=== PATIENT | male | born 1960 | race Caucasian/White ===

== ENCOUNTER 2017-08-05 11:28 | Observation (INO) ==
[2017-08-05] MEDS ORDERED: Ipratropium/Albuterol Neb 3 ML ONE (12:33)
[2017-08-05] MEDS: Ipratropium/Albuterol Neb 3 ML IH SCH (12:34)
--- NOTE | 2017-08-05 12:37 | Emergency Department Note ---
Disposition Clinical Impression: Shortness of breath Asthma with acute exacerbation Qualifiers: Asthma severity: severe Asthma persistence: persistent Qualified Code(s): J45.51 - Severe persistent asthma with (acute) exacerbation Disposition: Admitted As Inpatient Condition: Fair Referrals: Divine Phillips DO [Primary Care Provider] - Forms: ED Satisfaction Letter Time of Disposition: 16:10 (GET THIS ADMISSION TREAT) General Adult HPI - General Chief complaint: ED Asthma Stated complaint: asthma attack Time Seen by Provider: 08/05/17 12:17 Source: patient Limitations: no limitations Nursing Notes Reviewed: Yes Vital Signs Reviewed: Yes - History of Present Illness HPI Narrative: He has a history of COPD and stop smoking 5 months ago and presents today with severe shortness of breath which began when he was driving at 9:30 and is constant and worse with exertion with associated chest heaviness. Does have a pleuritic aspect with no radiation. No diaphoresis. No pain or swelling of the lower extremities. He is out of his inhaler. No cough or fever. Social history: Stopped smoking 5 months ago, no alcohol or drugs Pain Scale: 8 - Related Data Home Medications Medication Instructions Recorded Confirmed Albuterol Sulfate [Albuterol 2 puff IH Q4HR PRN 02/17/16 08/05/17 Inhaler] Ipratropium/Albuterol Neb [Duoneb] 3 ml IH Q6HR PRN 02/17/16 08/05/17 Quetiapine Fumarate [Seroquel] 350 mg PO HS 02/17/16 08/05/17 Tamsulosin [Flomax] 0.4 mg PO DAILY 02/17/16 08/05/17 Allergies Allergy/AdvReac Type Severity Reaction Status Date / Time No Known Allergies Allergy Verified 08/05/17 11:31 Review of Systems: Constitutional: No fever Vision: No blurred vision ENT: No rhinorrhea Respiratory: No cough Allergic: No allergies : No blood in urine GI: No blood in stool Hematologic: No bruising Dermatologic: No skin rash Musculoskeletal: No pain in the extremities Neuro: No numbness of the extremities Past Medical History - Past Medical History Medical history: Reports: asthma, COPD, diabetes, hyperlipidemia Psychiatric history: Reports: anxiety - Social History Smoking Status: Former smoker Smokeless Tobacco Status: No Alcohol use: Reports: none Drug use: Reports: none Physical Exam CONSTITUTIONAL: Well-appearing; well-nourished; A&O X 3, with moderate respiratory distress. The patient is to However the oxygen saturation is 90% on room air Head: atraumatic EYES: PERRL, no scleral icterus NOSE: The nose is normal in appearance without rhinorrhea NECK: No JVD or distended neck veins RESP: Normal chest excursion with respiration; breath sounds clear and equal bilaterally; no wheezes, rhonchi, or rales CARD: Regular rhythm, without murmurs, rub or gallop ABD: Non-distended; non-tender, soft, without rigidity, rebound or guarding,no pulsatile mass CHEST: No pain with palpation SKIN: Normal for age and race; warm and dry without diaphoresis ; no apparent lesions EXTREMITIES: Pulses are 2 plus and equal times 4 extremities, no peripheral edema or calf muscle pain - General Limitations: no limitations General appearance: alert Course Vital Signs Temperature 98 F 08/05/17 11:31 Pulse Rate 108 08/05/17 11:31 Respiratory Rate 24 08/05/17 11:31 Blood Pressure 166/98 08/05/17 11:31 O2 Sat by Pulse Oximetry 98 08/05/17 11:31 Temperature 98 F 08/05/17 11:31 Pulse Rate 108 08/05/17 11:31 Respiratory Rate 24 08/05/17 11:31 Blood Pressure 166/98 08/05/17 11:31 O2 Sat by Pulse Oximetry 100 08/05/17 12:48 Oxygen Delivery Oxygen Delivery Room Air Medical Decision Making - MDM Narrative Medical decision making narrative: patient's symptoms are BNP and troponin are all ordered. The patient does have good excursion with breath sounds however no wheezing so in addition to initial treatment for COPD we will also evaluate for other possible etiologies of his symptoms. 1237 I did review the EKG showing normal sinus rhythm with a rate of 94 and low voltage QRS and the patient does have some T-wave inversion in lead aVL did CTA of the chest is pending. I did review the other test results. Chest XR is negative. BNP and troponin are both negative. D-dimer is elevated so the chest CT is done 1409 I did review the patient's labs, he does have some element of chronic renal failure. I did speak with the hospitalist to except the patient for admission as I am concerned with the patient's significant shortness of breath which is improved but still present and the fact that he initially had no wheezing and only has a very slight wheeze on the left. He will receive 10 mg IV Decadron, oral aspirin and be admitted for monitoring as well as troponin test. CTA was negative and did not show any evidence of pneumonia, pulmonary embolism, pneumothorax, malignancy, heart failure, aortic dissection or other problems 1609 - Medical Records Medical records reviewed: Yes I reviewed the patient's medical records. - Lab Data Lab results reviewed: Yes I reviewed the patient's lab results. Result diagrams: 08/05/17 13:00 08/05/17 13:00 Lab Results 08/05/17 08/05/17 08/05/17 Range/Units 13:00 13:00 13:00 WBC 9.4 (4.3-11.1) K/mcL RBC 4.88 (4.19-5.50) M/mcL Hgb 15.0 (12.9-16.9) g/dL Hct 44.5 (37.5-50.1) % MCV 91.2 (83.0-100.0) fL MCH 30.7 (28.0-33.3) pg MCHC 33.7 (31.6-35.5) g/dL RDW 12.7 (11.5-14.5) % Plt Count 228 (140-400) K/mcL MPV 10.0 (9.4-12.4) fL Immature Gran % 0.3 (0-4) % Seg Neutrophils % 67.6 % Lymphocytes % 19.8 % Monocytes % 9.1 % Eosinophils % 2.4 % Basophils % 0.8 % Neutrophils # 6.4 (1.6-8.9) K/mcL Lymphocytes # 1.9 (0.6-4.6) K/mcL Monocytes # 0.9 (0.0-1.3) K/mcL Eosinophils # 0.2 (0.0-0.6) K/mcL Basophils # 0.1 (0.0-0.2) K/mcL D-Dimer (0-500) ng/mLFEU Sodium 135 L (136-145) mEq/L Potassium 4.2 (3.5-5.1) mEq/L Chloride 104 (98-107) mEq/L Carbon Dioxide 21 L (23-29) mEq/L BUN 27 H (6-20) mg/dL Creatinine 1.33 H (0.70-1.30) mg/dL Est GFR ( Amer) > 60 (> 60) Est GFR (Non-Af Amer) 55 L (> 60) BUN/Creatinine Ratio 20 (6-26) Glucose 117 H (70-105) mg/dL Calculated Osmolality 286 (280-300) Calcium 9.3 (8.6-10.3) mg/dL Troponin I < 0.03 (< 0.04) ng/mL B-Natriuretic Peptide (Less than 100) pg/mL 08/05/17 08/05/17 Range/Units 13:00 13:00 WBC (4.3-11.1) K/mcL RBC (4.19-5.50) M/mcL Hgb (12.9-16.9) g/dL Hct (37.5-50.1) % MCV (83.0-100.0) fL MCH (28.0-33.3) pg MCHC (31.6-35.5) g/dL RDW (11.5-14.5) % Plt Count (140-400) K/mcL MPV (9.4-12.4) fL Immature Gran % (0-4) % Seg Neutrophils % % Lymphocytes % % Monocytes % % Eosinophils % % Basophils % % Neutrophils # (1.6-8.9) K/mcL Lymphocytes # (0.6-4.6) K/mcL Monocytes # (0.0-1.3) K/mcL Eosinophils # (0.0-0.6) K/mcL Basophils # (0.0-0.2) K/mcL D-Dimer 525 H (0-500) ng/mLFEU Sodium (136-145) mEq/L Potassium (3.5-5.1) mEq/L Chloride (98-107) mEq/L Carbon Dioxide (23-29) mEq/L BUN (6-20) mg/dL Creatinine (0.70-1.30) mg/dL Est GFR ( Amer) (> 60) Est GFR (Non-Af Amer) (> 60) BUN/Creatinine Ratio (6-26) Glucose (70-105) mg/dL Calculated Osmolality (280-300) Calcium (8.6-10.3) mg/dL Troponin I (< 0.04) ng/mL B-Natriuretic Peptide 17 (Less than 100) pg/mL Critical Care Time Critical Care Time: No
[2017-08-05 13:09] LABS: Basophils # 0.1 K/mcL (0.0-0.2); Basophils % 0.8 %; Eosinophils # 0.2 K/mcL (0.0-0.6); Eosinophils % 2.4 %; Hematocrit 44.5 % (37.5-50.1); Immature Granulocytes % 0.3 % (0-4); Lymphocytes # 1.9 K/mcL (0.6-4.6); Lymphocytes % 19.8 %; Mean Corpuscular HGB Conc 33.7 g/dL (31.6-35.5); Mean Corpuscular Hemoglobin 30.7 pg (28.0-33.3); Mean Corpuscular Volume 91.2 fL (83.0-100.0); Monocytes # 0.9 K/mcL (0.0-1.3); Monocytes % 9.1 %; Neutrophils # 6.4 K/mcL (1.6-8.9); Platelet Count 228 K/mcL (140-400); Red Blood Count 4.88 M/mcL (4.19-5.50); Red Cell Distribution Width 12.7 % (11.5-14.5); Segmented Neutrophils % 67.6 %
[2017-08-05 13:32] LABS: Calcium 9.3 mg/dL (8.6-10.3); Carbon Dioxide 21 mEq/L (23-29); Chloride 104 mEq/L (98-107); Potassium 4.2 mEq/L (3.5-5.1); Sodium 135 mEq/L (136-145)
[2017-08-05 13:38] LABS: BUN/Creatinine Ratio 20 (6-26); Blood Urea Nitrogen 27 mg/dL (6-20); Glucose 117 mg/dL (70-105); Osmolality,Calculated 286 (280-300); eGFR For African Americans > 60 (> 60); eGFR For Non-African Americans 55 (> 60)
[2017-08-05] MEDS ORDERED: Aspirin 325 MG TABLET PO ONE (17:38)
[2017-08-05] MEDS ORDERED: Naloxone 0.4 MG/ML INJ IVP PRN (18:33)
--- NOTE | 2017-08-05 18:49 | Internal Med History&Physical ---
Date of Encounter: 08/05/17 Time of Encounter: 17:30 Assessment and Plan (1) Acute exacerbation of COPD with asthma Current visit: Yes Status: Acute Acute exacerbation of COPD w/asthma. Pt. reports shortness of breath symptoms began this morning at 9 AM. Patient used albuterol inhalers 6 AM. Patient states he normally uses ipratropium bromide inhaler but does not have current prescription for one. States his ipratropium bromide inhaler prevent attacks such as this. Reports pleuritic pain on inspiration and chest heaviness. Former smoker smoking 2 packs per day and reports quitting 5 months ago. Supplemental O2 with titration and SPO2 monitoring. Solu-Medrol 40 mg every 8 hours. Ipratropium nebs every 4. Continuous cardiac telemetry for tachycardia. 1 mg nicotine patch ordered daily. Communication order to discharging provider to add ipratropium bromide inhaler to patient's medication discharge list. Pt. discussed w/Dr. Quinn who is in agreement w/plan of care. Pt. is moderate risk for further morbidity and respiratory distress/failure based on current sx, hx, long-term tobacco abuse, and risk factors. Observation. (2) Anemia Current visit: Yes Status: Chronic Hx of chronic anemia that he reports is d/t iron deficiency. Pt. states he takes OTC iron and B12. Hgb currently 15.0 and Hct 44.5 on admission. Qualifiers: Anemia type: iron deficiency Iron deficiency anemia type: unspecified iron deficiency Qualified Code(s): D50.9 - Iron deficiency anemia, unspecified (3) BPH (benign prostatic hyperplasia) Current visit: Yes Status: Chronic Hx of chronic BPH. Continue pts. Flomax. Qualifiers: Lower urinary tract symptom presence: symptoms present Lower urinary tract symptom detail: incomplete bladder emptying Qualified Code(s): N40.1 - Benign prostatic hyperplasia with lower urinary tract symptoms; R39.14 - Feeling of incomplete bladder emptying; R39.14 - Feeling of incomplete bladder emptying (4) DVT prophylaxis Current visit: Yes Status: Acute Heparin 5,000 units SQ Q8 for DVT prophylaxis. Monitor pt. for signs of bleeding. Internal Medicine - H&P: HPI Chief complaint: SOB/Asthma attack Admitted From: Emergency Dept Plans for Post Hospital Care: Home History of present illness: Mr. Babcock is a 57 year old male with medical hx of asthma, COPD, BPH, and anemia presents from the ED with chief complaints of shortness of breath, dyspnea, and asthma attack that began at 9:30 AM this morning. Patient states he used his albuterol inhaler 6 AM and at 9:30 AM began to experience an asthma attack. Patient also reports chest heaviness which worsens with inspiration and has no radiation. Patient denies diaphoresis, cough, fever. Patient reports he smoked 2 packs per day and quit 5 months ago. Patient denies recent illness, fever, chills, nausea, vomiting, headache, changes in vision, chest pain, palpitations, numbness, tingling abdominal pain, diarrhea, constipation, edema, weakness, fatigue, dizziness, lightheadedness, pre-syncope, or syncope. Past Med Surg Social Fam HX - Past Medical History Source: patient, old records reviewed Medical history: asthma, COPD, other (Anemia, BPH) Psychiatric history: anxiety - Social History Smoking Status: Former smoker Packs per day: 2 PPD - Reports quitting 5 months ago Smokeless Tobacco Status: No Alcohol use: none Drug use: none Occupational status: employed Current living situation: Home Activity Level: Independent ambulation Recent Out of Country Travel Within the Last 8 Weeks: No Exposure or Possible Exposure to Illness During Travel: No - Family History Mother Living Status: Age at : 78 Cause of : following bypass surgery Hx Family Cardiac Disorders: Yes (CHF, bypass, CAD) Hx Family Endocrine Disorder: Yes (DM) Father Race: Family Member Ethnicity: Non- Living Status: Age at : 90 Cause of : Aneurysm Hx Family Cardiac Disorders: Yes (aneurysm on carotid) Brother Race: Family Member Ethnicity: Non- Living Status: Age at : 64 Cause of : Bladder cancer Hx Family Cancer: Yes (Bladder) Sister Race: Family Member Ethnicity: Non- Living Status: Still Living Hx Family Medical Disorders: No Internal Medicine - H&P: Meds Albuterol Sulfate [Albuterol Inhaler] 2 puff IH Q4HR PRN 02/17/16 [History] Ipratropium/Albuterol Neb [Duoneb] 3 ml IH Q6HR PRN 02/17/16 [History] Quetiapine Fumarate [Seroquel] 350 mg PO HS 02/17/16 [History] Tamsulosin [Flomax] 0.4 mg PO DAILY 02/17/16 [History] 3 Allergy/AdvReac Type Severity Reaction Status Date / Time No Known Allergies Allergy Verified 08/05/17 11:31 All Systems PM: A 10-system review of systems was performed and is negative for pertinent findings except as documented above in the HPI. - Constitutional Constitutional: no chills, no fever(s), no night sweats - EENT Eyes: no change in vision, no discharge, no pain, no photophobia Ears: no ear discharge, no ear pain, no tinnitus Nose, mouth and throat: no dysphagia, no nasal discharge, no neck pain, no sore throat - Breasts Breasts: as per HPI - Cardiovascular Cardiovascular ROS IM: as per HPI, dyspnea, dyspnea on exertion, no chest pain, no diaphoresis, no lightheadedness, no palpitations, no syncope - Respiratory Respiratory: dyspnea, dyspnea on exertion, wheezing, pain on inspiration, no cough, no excessive phlegm production - Gastrointestinal Gastrointestinal: no abdominal pain, no diarrhea, no hematemesis, no hematochezia, no melena, no nausea, no vomiting - Genitourinary Genitourinary ROS male: as per HPI - Musculoskeletal Musculoskeletal ROS IM: no numbness, no tingling - Integumentary Integumentary IM: no rash, no unusual bruising - Neurological Neurological ROS: no confusion, no convulsions, no focal weakness, no numbness, no tingling, no tremor(s) - Psychiatric Psychiatric: as per HPI - Endocrine Endocrine IM: as per HPI - Hematologic/Lymphatic Hematologic/Lymphatic: no easy bruising - Allergic/Immunologic Allergic/Immunologic: as per HPI - Constitutional Vitals: Temp Pulse Resp BP Pulse Ox 98.0 F 88 18 143/92 96 08/05/17 17:59 08/05/17 17:59 08/05/17 17:59 08/05/17 17:59 08/05/17 17:59 General appearance: Present: cooperative, A&O X 3, pleasant, no acute distress, obese, answers questions appropriately - Head Head exam: Present: atraumatic, normocephalic - Eye Eye exam: Present: PERRL, conjuntiva pink, sclera anicteric Pupils: Present: PERRL - ENT ENT exam: Present: normal exam - Neck Neck exam general surgery: Present: normal inspection, supple, trachea midline. Absent: lymphadenopathy - Respiratory Respiratory exam: Present: accessory muscle use, wheezes. Absent: rales, rhonchi - Cardiovascular Cardiovascular exam: Present: RRR, +S1, +S2. Absent: diastolic murmur, gallop, rubs, systolic murmur - GI/Abdominal GI/Abdominal exam: Present: normal bowel sounds, soft, no peritoneal signs. Absent: distended, tenderness - Rectal Rectal exam: Present: deferred - Additional comments: exam deferred. - Extremities Exam Extremities exam: Present: warm, radial pulses palpable and symmetrical. Absent : calf tenderness, cyanotic, pedal edema - Back Exam Back exam: Present: normal inspection - Neurological Exam Neurological exam: Present: CN II-XII intact, oriented X3, no focal deficits. Absent: pronater drift, facial droop, speech deficit - Psychiatric Psychiatric exam: Present: normal affect, normal mood - Skin Skin exam: Present: dry, intact Internal Med - H&P Results - Labs CBC & Chem 7: 08/05/17 13:00 08/05/17 13:00 - EKG Data EKG shows normal: sinus rhythm - EKG Data Prior EKG available for review: no EKG comments: 08/05/17 18:54 EKG dated 08/05/17 shows sinus rhythm with low QRS voltage in precordial leads. - Diagnostic Studies Chest x-ray Additional comments: Impressions Chest X-Ray 08/05/17 12:29 IMPRESSION: No evidence for acute cardiopulmonary process. D/ / Jean Marie Chan MD / Jean Marie Chan MD Interpreting Provider: Jean Marie Chan MD Other Images Additional comments: Impressions Chest CTA 08/05/17 13:46 IMPRESSION: 1. No evidence of pulmonary embolism or acute pulmonary abnormality. D/ / Gurwinder Mccoy MD / Gurwinder Mccoy MD Interpreting Provider: Gurwinder Mccoy MD
[2017-08-05] MEDS: Ipratropium Neb 0.5 MG NEBULIZER IH SCH ×2 (19:34→23:34)
[2017-08-05] MEDS: *HR* Heparin 5,000 UNIT/ML VIAL SQ SCH (20:56)
[2017-08-05] MEDS: MethylPREDNISolone 40 MG/ML VIAL IVP SCH (20:56)
[2017-08-05] MEDS ORDERED: Maalox Oral Soln 30 mL PO PRN (21:03)
[2017-08-05] MEDS: Acetaminophen 325 MG TABLET PO PRN (21:23)
[2017-08-05] MEDS: Famotidine 20 MG TABLET PO SCH (21:23)
[2017-08-06] MEDS ORDERED: MethylPREDNISolone 40 MG/ML VIAL IVP SCH
[2017-08-06] MEDS: Ipratropium Neb 0.5 MG NEBULIZER IH SCH ×6 (03:46→23:00)
[2017-08-06] MEDS: *HR* Heparin 5,000 UNIT/ML VIAL SQ SCH ×3 (05:46→22:23)
[2017-08-06] MEDS: MethylPREDNISolone 40 MG/ML VIAL IVP SCH ×3 (05:46→20:10)
[2017-08-06 06:27] LABS: Basophils % 0.5 %; Hematocrit 48.2 % (37.5-50.1); Hemoglobin 15.8 g/dL (12.9-16.9); Immature Granulocytes % 0.6 % (0-4); Lymphocytes # 0.9 K/mcL (0.6-4.6); Lymphocytes % 10.3 %; Mean Corpuscular HGB Conc 32.8 g/dL (31.6-35.5); Mean Corpuscular Hemoglobin 30.6 pg (28.0-33.3); Mean Corpuscular Volume 93.2 fL (83.0-100.0); Mean Platelet Volume 10.7 fL (9.4-12.4); Monocytes # 0.1 K/mcL (0.0-1.3); Monocytes % 0.8 %; Neutrophils # 7.7 K/mcL (1.6-8.9); Platelet Count 229 K/mcL (140-400); Red Blood Count 5.17 M/mcL (4.19-5.50); Red Cell Distribution Width 12.8 % (11.5-14.5); Segmented Neutrophils % 87.8 %
[2017-08-06 06:30] LABS: Hemoglobin A1C 5.6 %
[2017-08-06 07:06] LABS: Alanine Aminotransferase 14 Units/L (7-52); Albumin 4.4 g/dL (3.5-5.7); Albumin/Globulin Ratio 1.5 (1.1-2.2); Alkaline Phosphatase 72 Units/L (34-104); Aspartate Amino Transferase 18 Units/L (13-39); BUN/Creatinine Ratio 20 (6-26); Bilirubin,Total 0.6 mg/dL (0.3-1.0); Blood Urea Nitrogen 29 mg/dL (6-20); Calcium 9.3 mg/dL (8.6-10.3); Carbon Dioxide 21 mEq/L (23-29); Chloride 105 mEq/L (98-107); Chol/HDL Ratio 4.5 (0-4.9); Cholesterol 185 mg/dL (< 200); Globulin 2.9 g/dL (2.4-3.5); Glucose 152 mg/dL (70-105); HDL Cholesterol 41 mg/dL (40-59); LDL Cholesterol,Calculated 119 mg/dL (0-99); Magnesium 2.2 mg/dL (1.6-2.6); Osmolality,Calculated 287 (280-300); Potassium 5.3 mEq/L (3.5-5.1); Sodium 134 mEq/L (136-145); Total Protein 7.3 g/dL (6.4-8.9); Triglycerides 124 mg/dL (< 150); eGFR For African Americans > 60 (> 60); eGFR For Non-African Americans 50 (> 60)
[2017-08-06] MEDS: Nicotine 21 MG PATCH.TD24 TD SCH (08:11)
[2017-08-06] MEDS: Famotidine 20 MG TABLET PO SCH ×2 (08:11→20:11)
[2017-08-06] MEDS: Acetaminophen 325 MG TABLET PO PRN ×2 (09:28→20:18)
[2017-08-06] MEDS: Ipratropium/Albuterol Neb 3 ML IH SCH (12:06)
--- NOTE | 2017-08-06 14:19 | Electrocardiograph Report ---
[place] [id number] Test Date: 2017-08-05 Pat Name: Go Babcock Department: 103 Room: 3B46 Gender: M Herbologist: : 1960 Requested By: Freddie Dubose Order Number: [id number] Reading MD: Juan Schmid Measurements Intervals [place] Rate: 94 P: 75 OR: 177 QRS: 64 QRSD: 84 T: 82 QT: 329 QTc: 380 Interpretive Statements SINUS RHYTHM LOW QRS VOLTAGE IN PRECORDIAL LEADS Electronically Signed On 08-06-2017 14:17:37 EST by Juan Schmid
--- NOTE | 2017-08-06 17:25 | Internal Med Progress Note ---
Date of Encounter: 08/06/17 Time of Encounter: 11:00 - Assessment and plan (1) Acute exacerbation of COPD with asthma Current Visit: Yes Status: Acute Assessment and plan: Patient has been experiencing wheezing cough increasing shortness of breath after use of rescue inhaler with no relief. Presently he is stable with no wheezing denies any shortness of breath. 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 We will continue to monitor Avoid nephrotoxins (3) DVT prophylaxis Current Visit: Yes Status: Acute Assessment and plan: Heparin subcutaneous - Time Spent With Patient less than 15 minutes - Subjective Interval history: Patient originally presented with complaints of shortness of breath dyspnea and asthma attack that did not improve after using inhaler. Presently he states he feels much better however he is concerned about being discharged without receiving prescription for ipratropium bromide inhaler . Informed patient he will receive before discharge patient denies any chest pain or shortness breath cough or wheezing at this time. He is hemodynamically stable - Constitutional Vitals: Temp Pulse Resp BP Pulse Ox 98.1 F 112 16 168/95 97 08/06/17 15:23 08/06/17 15:23 08/06/17 15:35 08/06/17 15:23 08/06/17 15:35 General appearance: Present: cooperative, A&O X 3, pleasant, no acute distress, obese, answers questions appropriately - Head Head exam: Present: atraumatic, normocephalic - Eye Eye exam: Present: PERRL, conjuntiva pink, sclera anicteric Pupils: Present: PERRL - Neck Neck exam general surgery: Present: supple, trachea midline. Absent: lymphadenopathy - Respiratory Respiratory exam: Present: CTAB. Absent: accessory muscle use, rales, rhonchi, wheezes - Cardiovascular Cardiovascular exam: Present: RRR, +S1, +S2. Absent: diastolic murmur, gallop, rubs, systolic murmur - GI/Abdominal GI/Abdominal exam: Present: normal bowel sounds, soft, no peritoneal signs. Absent: distended, tenderness - Extremities Exam Extremities exam: Present: warm, radial pulses palpable and symmetrical. Absent : calf tenderness, cyanotic, pedal edema - Neurological Exam Neurological exam: Present: CN II-XII intact, oriented X3, no focal deficits. Absent: pronater drift, facial droop, speech deficit - Skin Skin exam: Present: dry, intact Internal Medicine: Result - Labs CBC & Chem 7: 08/06/17 05:01 08/06/17 05:01 Labs: Short CBC 08/06/17 Range/Units 05:01 WBC 8.7 (4.3-11.1) K/mcL Hgb 15.8 (12.9-16.9) g/dL Hct 48.2 (37.5-50.1) % Plt Count 229 (140-400) K/mcL Neutrophils # 7.7 (1.6-8.9) K/mcL BMP 08/06/17 05:01 Sodium 134 L Potassium 5.3 H D Chloride 105 Carbon Dioxide 21 L BUN 29 H Creatinine 1.45 H Glucose 152 H Calcium 9.3 Liver Function 08/06/17 Range/Units 05:01 Total Bilirubin 0.6 (0.3-1.0) mg/dL AST 18 (13-39) Units/L ALT 14 (7-52) Units/L Alkaline Phosphatase 72 (34-104) Units/L Albumin 4.4 (3.5-5.7) g/dL - ABG Interpretation ABG results: PT/INR, D-dimer D-Dimer 525 ng/mLFEU (0-500) H 08/05/17 13:00 Consult Discharge Plan - Plan Referrals: Karis Cooley CNP [Partnered Physician] - 08/13/17 10:00 am
[2017-08-07] MEDS: MethylPREDNISolone 40 MG/ML VIAL IVP SCH ×2 (03:40→10:22)
[2017-08-07] MEDS: Ipratropium Neb 0.5 MG NEBULIZER IH SCH ×7 (04:04→23:05)
[2017-08-07 04:12] LABS: Basophils % 0.1 %; Eosinophils % 0.1 %; Hematocrit 42.5 % (37.5-50.1); Immature Granulocytes % 0.7 % (0-4); Lymphocytes # 1.3 K/mcL (0.6-4.6); Lymphocytes % 8.7 %; Mean Corpuscular HGB Conc 33.2 g/dL (31.6-35.5); Mean Corpuscular Hemoglobin 30.7 pg (28.0-33.3); Mean Corpuscular Volume 92.4 fL (83.0-100.0); Mean Platelet Volume 10.4 fL (9.4-12.4); Monocytes # 0.8 K/mcL (0.0-1.3); Monocytes % 5.1 %; Neutrophils # 12.6 K/mcL (1.6-8.9); Platelet Count 225 K/mcL (140-400); Red Cell Distribution Width 12.9 % (11.5-14.5); Segmented Neutrophils % 85.3 %
[2017-08-07 04:15] LABS: Hemoglobin 14.1 g/dL (12.9-16.9)
[2017-08-07 04:37] LABS: Albumin 4.1 g/dL (3.5-5.7); Albumin/Globulin Ratio 1.6 (1.1-2.2); Bilirubin,Total 0.4 mg/dL (0.3-1.0); Calcium 8.7 mg/dL (8.6-10.3); Globulin 2.5 g/dL (2.4-3.5); Potassium 4.9 mEq/L (3.5-5.1); Total Protein 6.6 g/dL (6.4-8.9)
[2017-08-07] MEDS: *HR* Heparin 5,000 UNIT/ML VIAL SQ SCH ×3 (05:25→20:17)
[2017-08-07] MEDS: Ipratropium/Albuterol Neb 3 ML IH SCH (08:13)
[2017-08-07] MEDS: Famotidine 20 MG TABLET PO SCH ×2 (08:22→20:17)
[2017-08-07] MEDS: Nicotine 21 MG PATCH.TD24 TD SCH (08:22)
[2017-08-07] MEDS: Cyanocobalamin (B-12) 1,000 MCG TABLET PO SCH (08:22)
[2017-08-07] MEDS ORDERED: 0.9 % Sodium Chloride 1,000 ML IVC SCH (09:00)
--- NOTE | 2017-08-07 14:30 | Internal Med Progress Note ---
Date of Encounter: 08/07/17 Time of Encounter: 14:28 - Assessment and plan (1) Acute exacerbation of COPD with asthma Current Visit: Yes Status: Acute Assessment and plan: Presently he is stable with no wheezing denies any shortness of breath. We will continue with bronchodilators as needed Oxygen as needed Patient requesting to be discharged with prescription of ipratropium bromide inhaler since he was out of this medication prior to this episode Steroid taper (2) Acute renal failure superimposed on chronic kidney disease Current Visit: Yes Status: Acute Assessment and plan: Patient has a history of CK to be secondary to right nephrectomy patient does have history RCC he did have a CTA in the ER on presentation. Creatinine has slowly elevated today at this 1.56. We will give gentle IV fluids and monitor creatinine daily Monitor intake and output Avoid nephro toxins Consult nephrology as needed Qualifiers: Acute renal failure type: unspecified Chronic kidney disease stage: stage 3 (moderate) Qualified Code(s): N17.9 - Acute kidney failure, unspecified; N18.3 - Chronic kidney disease, stage 3 (moderate); N18.3 - Chronic kidney disease, stage 3 (moderate) (3) Leukocytosis Current Visit: Yes Status: Acute Assessment and plan: Today WBC is 14,000 patient is receiving steroid treatment which I suspect elevating white count. We will obtain respiratory panel and urinalysis. He denies any urinary symptoms fevers or chills Qualifiers: Leukocytosis type: unspecified Qualified Code(s): D72.829 - Elevated white blood cell count, unspecified (4) DVT prophylaxis Current Visit: Yes Status: Acute Assessment and plan: Heparin subcutaneous - Time Spent With Patient less than 15 minutes - Subjective Interval history: Patient states he breathing much better no wheezing continues to have cough nonproductive. Denies fevers chills nausea vomiting or chest pain. - Constitutional Vitals: Temp Pulse Resp BP Pulse Ox 97.4 F L 95 18 153/83 94 08/07/17 12:39 08/07/17 12:39 08/07/17 12:39 08/07/17 12:39 08/07/17 12:39 General appearance: Present: cooperative, A&O X 3, pleasant, no acute distress, obese, answers questions appropriately - Head Head exam: Present: atraumatic, normocephalic - Eye Eye exam: Present: PERRL, conjuntiva pink, sclera anicteric Pupils: Present: PERRL - Neck Neck exam general surgery: Present: supple, trachea midline. Absent: lymphadenopathy - Respiratory Respiratory exam: Present: CTAB. Absent: accessory muscle use, rales, rhonchi, wheezes - Cardiovascular Cardiovascular exam: Present: RRR, +S1, +S2. Absent: diastolic murmur, gallop, rubs, systolic murmur - GI/Abdominal GI/Abdominal exam: Present: normal bowel sounds, soft, no peritoneal signs. Absent: distended, tenderness - Extremities Exam Extremities exam: Present: warm, radial pulses palpable and symmetrical. Absent : calf tenderness, cyanotic, pedal edema - Neurological Exam Neurological exam: Present: CN II-XII intact, oriented X3, no focal deficits. Absent: pronater drift, facial droop, speech deficit - Skin Skin exam: Present: dry, intact Internal Medicine: Result - Labs CBC & Chem 7: 08/07/17 03:46 08/07/17 03:46 Labs: Short CBC 08/07/17 Range/Units 03:46 WBC 14.8 H D (4.3-11.1) K/mcL Hgb 14.1 D (12.9-16.9) g/dL Hct 42.5 (37.5-50.1) % Plt Count 225 (140-400) K/mcL Neutrophils # 12.6 H (1.6-8.9) K/mcL BMP 08/07/17 03:46 Sodium 135 L Potassium 4.9 Chloride 106 Carbon Dioxide 22 L BUN 35 H Creatinine 1.52 H Glucose 161 H Calcium 8.7 Liver Function 08/07/17 Range/Units 03:46 Total Bilirubin 0.4 (0.3-1.0) mg/dL AST 10 L (13-39) Units/L ALT 13 (7-52) Units/L Alkaline Phosphatase 59 (34-104) Units/L Albumin 4.1 (3.5-5.7) g/dL - ABG Interpretation ABG results: PT/INR, D-dimer D-Dimer 525 ng/mLFEU (0-500) H 08/05/17 13:00 Consult Discharge Plan - Plan Referrals: Karis Cooley CNP [Partnered Physician] - 08/13/17 10:00 am
[2017-08-07] MEDS: Acetaminophen 325 MG TABLET PO PRN (15:11)
[2017-08-07 17:08] LABS: Bilirubin,Urine Negative (Negative); Blood,Urine Negative (Negative); Clarity,Urine Clear (Clear); Color,Urine Yellow (Yellow); Glucose,Urine (UA) 250 mg/dL (Normal); Ketones,Urine Negative (Negative); Leukocyte Esterase,Urine Negative (Negative); Nitrite,Urine Negative (Negative); Protein,Urine Negative (Neg-Trace); Specific Gravity,Urine 1.023 (1.010-1.025); Urobilinogen,Urine Normal (Normal)
[2017-08-07 18:02] LABS: Adenovirus Not Detected (Not Detect); Bordetella Pertussis Not Detected (Not Detect); Chlamydophila pneumoniae Not Detected (Not Detect); Coronavirus 229E Not Detected (Not Detect); Coronavirus HKU1 Not Detected (Not Detect); Coronavirus NL63 Not Detected (Not Detect); Coronavirus OC43 Not Detected (Not Detect); Human Metapneumovirus Not Detected (Not Detect); Human Rhinovirus/Enterovirus Not Detected (Not Detect); Influenza A Subtype 2009 H1 Not Detected (Not Detect); Influenza A Untypeable Not Detected (Not Detect); Influenza B Not Detected (Not Detect); Mycoplasma pneumoniae Not Detected (Not Detect); Parainfluenza Virus 1 Not Detected (Not Detect); Parainfluenza Virus 2 Not Detected (Not Detect); Parainfluenza Virus 3 Not Detected (Not Detect); Parainfluenza Virus 4 Not Detected (Not Detect); Respiratory Syncytial Virus Not Detected (Not Detect)
[2017-08-08] MEDS: Ipratropium Neb 0.5 MG NEBULIZER IH SCH ×4 (03:37→16:28)
[2017-08-08] MEDS: Acetaminophen 325 MG TABLET PO PRN (04:27)
[2017-08-08] MEDS: *HR* Heparin 5,000 UNIT/ML VIAL SQ SCH ×2 (05:06→14:23)
[2017-08-08 07:56] LABS: Basophils # 0.1 K/mcL (0.0-0.2); Basophils % 0.6 %; Eosinophils # 0.1 K/mcL (0.0-0.6); Eosinophils % 0.6 %; Hematocrit 42.3 % (37.5-50.1); Hemoglobin 14.2 g/dL (12.9-16.9); Immature Granulocytes % 0.7 % (0-4); Lymphocytes # 3.1 K/mcL (0.6-4.6); Lymphocytes % 30.5 %; Mean Corpuscular HGB Conc 33.6 g/dL (31.6-35.5); Mean Corpuscular Hemoglobin 31.1 pg (28.0-33.3); Mean Corpuscular Volume 92.8 fL (83.0-100.0); Mean Platelet Volume 10.5 fL (9.4-12.4); Monocytes # 0.9 K/mcL (0.0-1.3); Monocytes % 8.8 %; Neutrophils # 6.1 K/mcL (1.6-8.9); Platelet Count 211 K/mcL (140-400); Red Blood Count 4.56 M/mcL (4.19-5.50); Red Cell Distribution Width 13.1 % (11.5-14.5); Segmented Neutrophils % 58.8 %
[2017-08-08] MEDS: Cyanocobalamin (B-12) 1,000 MCG TABLET PO SCH (07:59)
[2017-08-08] MEDS: Famotidine 20 MG TABLET PO SCH (07:59)
[2017-08-08] MEDS: Nicotine 21 MG PATCH.TD24 TD SCH (08:00)
[2017-08-08 08:12] LABS: Alanine Aminotransferase 13 Units/L (7-52); Albumin 3.9 g/dL (3.5-5.7); Albumin/Globulin Ratio 1.6 (1.1-2.2); Alkaline Phosphatase 53 Units/L (34-104); Aspartate Amino Transferase 10 Units/L (13-39); BUN/Creatinine Ratio 25 (6-26); Bilirubin,Total 0.4 mg/dL (0.3-1.0); Blood Urea Nitrogen 36 mg/dL (6-20); Calcium 8.4 mg/dL (8.6-10.3); Carbon Dioxide 22 mEq/L (23-29); Chloride 109 mEq/L (98-107); Globulin 2.4 g/dL (2.4-3.5); Glucose 87 mg/dL (70-105); Osmolality,Calculated 290 (280-300); Potassium 4.3 mEq/L (3.5-5.1); Sodium 136 mEq/L (136-145); Total Protein 6.3 g/dL (6.4-8.9); eGFR For African Americans > 60 (> 60); eGFR For Non-African Americans 50 (> 60)
[2017-08-08] MEDS ORDERED: 0.9 % Sodium Chloride 500 ML IVC ONE (08:42)
[2017-08-08] MEDS ORDERED: predniSONE 20 MG TABLET PO SCH (09:00)
[2017-08-08 13:11] VITALS: BP 152/81
--- NOTE | 2017-08-08 15:06 | Discharge Summary ---
Date of Encounter: 08/08/17 Time of Encounter: 15:02 - Discharge Diagnosis (1) Acute exacerbation of COPD with asthma Priority: Primary Status: Acute Comments: Patient presented after sitting sudden onset of difficulty breathing he uses albuterol tiny relief. Patient has been out of his Ipratropium bromide inhaler and does not have a prescription. He was given breathing treatments while here at the hospital he has not required any supplemental oxygen at this time and has returned back to his baseline. He will be discharged home with prescriptions of albuterol as well as ipratropium bromide to follow-up his primary care physician as outpatient (2) Acute renal failure superimposed on chronic kidney disease Priority: Primary Status: Resolved Comments: 1 patient did receive a CTA while in the ER. He does have history of CK D stage III secondary to right nephrectomy. He did have a slight increase in his creatinine he was given IV fluids overnight and since incentive improved. He will follow-up with his family physician as outpatient Qualifiers: Acute renal failure type: unspecified Chronic kidney disease stage: stage 3 (moderate) Qualified Code(s): N17.9 - Acute kidney failure, unspecified; N18.3 - Chronic kidney disease, stage 3 (moderate); N18.3 - Chronic kidney disease, stage 3 (moderate) (3) Leukocytosis Priority: Secondary Status: Resolved Comments: He did have a slight increase suspect this is reactive he was given IV fluid and it returned back to baseline Qualifiers: Leukocytosis type: unspecified Qualified Code(s): D72.829 - Elevated white blood cell count, unspecified - Discharge Medications Prescriptions: Albuterol Sulfate [Albuterol Inhaler] 2 puff IH Q4HR PRN #1 inhaler PRN Reason: Shortness Of Breath Ipratropium [ATROVENT Inhaler] 2 puff IH Q6HR #1 hfa.[email or web address] Home Medications: Ipratropium/Albuterol Neb [Duoneb] 3 ml IH Q6HR PRN 02/17/16 [History] Quetiapine Fumarate [Seroquel] 350 mg PO HS 02/17/16 [History] Tamsulosin [Flomax] 0.4 mg PO DAILY 02/17/16 [History] Albuterol Sulfate [Albuterol Inhaler] 2 puff IH Q4HR PRN #1 inhaler 08/08/17 [Rx ] Ipratropium [ATROVENT Inhaler] 2 puff IH Q6HR #1 hfa.aer.ad 08/08/17 [Rx] Allergies/Adverse Reactions: 3 Allergy/AdvReac Type Severity Reaction Status Date / Time No Known Allergies Allergy Verified 08/05/17 11:31 Date of admission: 08/05/17 16:47 Primary care physician: Franchesca Schmitt Discharging clinician: Kathia Wolfe Anticipated date of discharge: 08/08/17 - Patient Status Disposition: Home, Self-Care Condition: Fair Overall status at discharge: patient is progressing back to baseline - Discharge Instructions Instructions: Asthma (DC) Follow Up With: Karis Cooley CNP [Partnered Physician] - 08/13/17 10:00 am - Diet and Activity Activity: increase activity as tolerated Diet: diabetic diet Hospital course: Mr. Babcock is a 57 year old male - Time Spent with Patient Total time spent providing and/or coordinating discharge services: - Constitutional Vitals: Temp Pulse Resp BP Pulse Ox 98.0 F 103 18 152/81 94 08/08/17 13:10 08/08/17 13:10 08/08/17 13:10 08/08/17 13:10 08/08/17 14:47 General appearance: Present: cooperative, A&O X 3, pleasant, no acute distress, obese, answers questions appropriately - Head Head exam: Present: atraumatic, normocephalic - Eye Eye exam: Present: PERRL, conjuntiva pink, sclera anicteric Pupils: Present: PERRL - Neck Neck exam general surgery: Present: supple, trachea midline. Absent: lymphadenopathy - Respiratory Respiratory exam: Present: CTAB. Absent: accessory muscle use, rales, rhonchi, wheezes - Cardiovascular Cardiovascular exam: Present: RRR, +S1, +S2. Absent: diastolic murmur, gallop, rubs, systolic murmur - GI/Abdominal GI/Abdominal exam: Present: normal bowel sounds, soft, no peritoneal signs. Absent: distended, tenderness - Extremities Exam Extremities exam: Present: warm, radial pulses palpable and symmetrical. Absent : calf tenderness, cyanotic, pedal edema - Neurological Exam Neurological exam: Present: CN II-XII intact, oriented X3, no focal deficits. Absent: pronater drift, facial droop, speech deficit - Skin Skin exam: Present: dry, intact
== END 2017-08-08 17:45 | disposition home or self-care (01) ==
LOC: EMEROO 11:28 → 3BNU 11:28
PROVIDERS: ADMIT Internal Medicine Cardiovascular Disease; ATTEND Registered Nurse